=== PATIENT | male | born 1945 ===

== ENCOUNTER 2018-02-18 11:23 | Inpatient (IN) | payer OTHER ==
[~2018-02-18] VITALS: Ht 180.3 cm; Wt 93.0 kg
[2018-02-18] MEDS ORDERED: TOPROL XL100 M1 (12:42)
[2018-02-18] MEDS ORDERED: JANUMET 50-1,01 EACH (12:42)
[2018-02-20] MEDS ORDERED: CIPRO500 MG PO (12:37)
== END 2018-02-20 17:08 | disposition home or self-care (01) | DRG 690 ==
LOC: ER 11:23 → MEDI 15:43 → SEC-K 15:43 → MEDJ 15:43 → MEDI 18:18 → MEDJ 18:59
DX: N39.0 Urinary tract infection, site not specified (principal); E87.1 Hypo-osmolality and hyponatremia; R31.0 Gross hematuria; I10 Essential (primary) hypertension; E11.9 Type 2 diabetes mellitus without complications; E87.6 Hypokalemia